=== PATIENT | female | born 1970 | race Caucasian/White ===

== ENCOUNTER → 2016-06-12 | Outpatient (CLI) | payer MEDICAID ==
[2016-06-12 13:11] VITALS: BP 154/79; PULSE 85; RESP 16; TEMP 98.1; BMI 30.4
[2016-06-12 15:09] LABS: CH 30.8; HCT 36.3 % (34.0-46.0); HDW 2.97; HGB 11.4 gm/dL (11.4-16.0); Hypochromasia Slight; MCH 30.4 pg (25.0-35.0); MCHC 31.4 g/dL (31.0-37.0); MCV 96.7 fL (80.0-100.0); Mean Platelet Volume 7.9; RBC 3.75 m/uL (3.80-5.40); RDW 13.8 % (11.5-15.5); WBC 8.5 k/uL (3.8-10.6)
[2016-06-12 15:25] LABS: ALT 26 U/L (9-52); AST 18 U/L (14-36); Alkaline Phosphatase 53 U/L (38-126); Anion Gap 7 mmol/L; Blood Urea Nitrogen 13 mg/dL (7-17); Calcium 8.9 mg/dL (8.4-10.2); Carbon Dioxide 26 mmol/L (22-30); Chloride 107 mmol/L (98-107); Cholesterol 228 mg/dL (<200); Glucose 79 mg/dL (74-99); HDL Cholesterol 72 mg/dL (40-60); Iron 54 ug/dL (37-170); Non-African American GFR(MDRD) >60 (>60 ml/min/1.73 sqM); Phosphorous 3.8 mg/dL (2.5-4.5); Potassium 4.4 mmol/L (3.5-5.1); Sodium 140 mmol/L (137-145); Total Bilirubin 0.5 mg/dL (0.2-1.3); Total Protein 5.8 g/dL (6.3-8.2); Triglycerides 77 mg/dL (<150)
[2016-06-12 15:37] LABS: % Iron Saturation 18.9 % (20-50); Prealbumin 23 mg/dL (18-36); Total Iron Binding Capacity 285 ug/dL (265-497)
[2016-06-12 15:40] LABS: Prothrombin Time 10.6 sec (9.0-12.0)
[2016-06-12 15:51] LABS: Partial Thromboplastin Time 21.8 sec (22.0-30.0)
[2016-06-12 16:32] LABS: Vitamin B12 582 pg/mL (239-931)
[2016-06-12 20:08] LABS: Hemoglobin A1C 4.3 % (4.2-6.1)
[2016-06-15 13:48] LABS: Selenium 116 mcg/L (63-160)
--- NOTE | 2016-07-21 19:18 | P.PN ---
Progress Note - Text DATE OF SERVICE: 06/12/2016 CHIEF COMPLAINT: Follow up sleeve gastrectomy. HISTORY OF PRESENT ILLNESS: Mary Jo Drummond is a pleasant 46-year-old female who is status post sleeve gastrectomy May 29, 2015. Her initial weight was 243 pounds. Today she comes in weighing 161 pounds. [place] body weight for a 5 foot, 1 frame is 131 pounds. She has lost 82 pounds in now one view. Her percent excess weight loss is 73%. Body mass index is reduced from 46 down to 30.4. Total BMI point reduction is 15.6. She lost another 3 pounds since her last visit in January 2016, now approximately 3 months ago. In fact she has undergone body contouring procedure including breast lift as well as abdominoplasty. She is very satisfied with her personal appearance. No reports of uncontrolled hypertension. Osteoarthritis is resolved. Her sleep apnea has resolved. Her joint pain is also resolved. She has a personal history of gastric lymphoma which was diagnosed during her evaluation of the bariatric program. She also reports being in remission for her gastric lymphoma. Now she presents for further evaluation and management. PAST MEDICAL HISTORY: 1. Hypertension. 2. Obstructive sleep apnea. 3. Osteoarthritis of the knees. 4. Chronic lower back pain. 5. Severe postoperative nausea and vomiting. 6. Gastric lymphoma in remission. PAST SURGICAL HISTORY: 1. Appendectomy. 2. Hysterectomy. 3. Tubal ligation. 4. Colonoscopy. 5. EGD. 6. Sleeve gastrectomy. 7. Abdominoplasty. 8. Breast lift. MEDICATIONS: 1. Tramadol. 2. Protonix. 3. [place]-3. 4. Nystatin powder. 5. Multivitamin. 6. Probiotic. 7. Estrace. 8. Vitamin D. 9. Vitamin B12. 10. Calcium citrate. 11. Biotin. 12. Nuvigil. 13. Xanax. ALLERGIES: LATEX. SOCIAL HISTORY: Lifelong nontobacco user. FAMILY HISTORY: Pertinent for morbid obesity. She also has family history of hyperlipidemia, hypertension and migraines. No family history of inflammatory bowel disease. Denies any gastrointestinal cancers. REVIEW OF SYSTEMS: CONSTITUTIONAL: [place] body weight of 131 pounds. Highest weight of 243 pounds. She has lost 82 pounds. Percent excess weight loss is 73%. Body mass index is reduced from 46 down to 30.4. Total BMI point reduction of 15.6. Additional 3 pounds weight loss in the last 3 months. GASTROINTESTINAL: She does report gastroesophageal reflux disease controlled with medications. No reports of dysphagia. MUSCULOSKELETAL: Osteoarthritis is now resolved. No reports of back pain. RESPIRATORY: Resolved obstructive sleep apnea. CARDIOVASCULAR: Resolved hypertension. HEENT: Denies any troubles with vision or hearing. ENDOCRINE: No reports of diabetes or thyroid disorders. NEURO: No reports stroke or seizure disorders. PSYCH: No reports of depression or suicidal ideation. HEMATOLOGIC: Denies any DVTs or easy bruising or bleeding. PHYSICAL EXAM: VITAL SIGNS: 98.1, 85, 16, 154/79, 5 feet 1 inch, 161 pounds. Body mass index of 30.4. ABDOMEN: Well approximated umbilical incision including incisions from abdominoplasty. SKIN: Well approximated incisions of the bilateral breasts. No palpable incisional hernias. HEENT: No sclera icterus. Extraocular movements grossly intact. Moist buccal mucosa. Head is atraumatic, normocephalic. Hears conversational speech. No nasal drainage. MUSCULOSKELETAL: No clubbing, cyanosis or edema. GENERAL: Well-developed female no acute distress. NECK: Supple without lymphadenopathy. CHEST: Nonlabored respirations with equal bilateral excursions. CARDIOVASCULAR: Regular rate and rhythm. NEURO: No focal or lateralizing signs. PSYCH: Appropriate affect. Alert and oriented to person, place and time. LABS: Hemoglobin normal 11.4. RBC was low at 3.75. PTT was low at 21.8. Percent iron saturation low of 18.9. Total protein low at 5.8. Albumin low at 3.4. Cholesterol elevated at 228. LDL elevated at 141. HDL elevated at 72. Rest of trace elements within normal limits. ASSESSMENT: 1. Morbid obesity due to excess calories, now resolved. Body mass index reduced from 46 down to 30.4. 2. Recent status post abdominoplasty. 3. Recent status post bilateral breast lift. 4. Obstructive sleep apnea, resolved. 5. Overweight. 6. History of low-grade gastric MALToma lymphoma. 7. Hypertensive disease without cardiomyopathy, resolved. 8. Osteoarthritis of lower back due to morbid obesity, resolved. 9. Osteoarthritis of the bilateral ankles due to morbid obesity, resolved. 10. Iron deficiency anemia. 11. Vitamin D deficiency. 12. Status post sleeve gastrectomy. 13. Gastroesophageal reflux disease. PLAN: 1. She had recent surgery which explains her low albumin and protein levels. 2. I have recommend continued protein intake with goal of over 65 grams daily, which will actually help her to recover well from her recent abdominoplasty, which is less than 2 weeks ago. 3. She does have history of gastric lymphoma for which she will need at minimum every 6 month check up and follow per her Oncologist. 4. Although she has done extremely well with her weight loss, she is personally looking to lose more weight. 5. Upper endoscopy needed for August or September 2016.
== END | disposition home or self-care (01) ==
LOC: BARWHC3 12:53
PROVIDERS: ATTEND Surgery Plastic and Reconstructive Surgery
DX: Z48.815 Encounter for surgical aftercare following surgery on the digestive system (principal); E66.01 Morbid (severe) obesity due to excess calories; Z98.84 Bariatric surgery status; E21.1 Secondary hyperparathyroidism, not elsewhere classified; E89.1 Postprocedural hypoinsulinemia; D50.8 Other iron deficiency anemias; E44.0 Moderate protein-calorie malnutrition; E55.9 Vitamin D deficiency, unspecified; K74.1 Hepatic sclerosis; N19 Unspecified kidney failure; K50.90 Crohn's disease, unspecified, without complications
CPT/HCPCS: 36415; 80053; 80061; 82306; 82525; 82607; 82728; 82746; 83036; 83540; 83550; 83735; 83970; 84100; 84134; 84255; 84425; 84443; 84590; 84630; 85027; 85610; 85730; 99211

== ENCOUNTER 2016-09-06 07:02 | Day surgery (SDC) | payer MEDICAID ==
[2016-09-05 11:36] VITALS: BMI 30.2
[~2016-09-06 07:02] MED LIST: LACTATED RINGERS 1,000 ML IV SCH
[2016-09-06 07:17] VITALS: TEMP 97.1
--- NOTE | 2016-09-06 07:21 | P.GSHP ---
History of Present Illness H&P Date: 09/06/16 CHIEF COMPLAINT: GERD HISTORY OF PRESENT ILLNESS: The patient is a 46-year-old female who presents reports gastroesophageal reflux disease. Upper endoscopy was offered for further evaluation and management. PAST MEDICAL HISTORY: Please see list. PAST SURGICAL HISTORY: Please see list. MEDICATIONS: Please see list. ALLERGIES: Please see list. SOCIAL HISTORY: No illicit drug use FAMILY HISTORY: No reports of Crohn disease or ulcerative colitis. REVIEW OF ORGAN SYSTEMS: CONSTITUTIONAL: No reports of fevers or chills. GI: Denies any blood in stools or constipation. PHYSICAL EXAM: VITAL SIGNS: Stable GENERAL: Well-developed and pleasant in no acute distress. HEENT: No scleral icterus. Extraocular movements grossly intact. Moist buccal mucosa. NECK: Supple without lymphadenopathy. CHEST: Unlabored respirations. Equal bilateral excursions. CARDIOVASCULAR: Regular rate and rhythm. Distal 2+ pulses. ABDOMEN: Soft, nondistended. MUSCULOSKELETAL: No clubbing, cyanosis, or edema. ASSESSMENT: 1. Gastroesophageal reflux disease PLAN: 1. Recommend proceeding with an upper endoscopy Past Medical History Past Medical History: Cancer, Chest Pain / Angina, GERD/Reflux, Hypertension, Osteoarthritis (OA), Pneumonia Additional Past Medical History / Comment(s): hx migraines, varicose veins, hiatal hernia, hx stomach cancer, hx high bp- no current rx, History of Any Multi-Drug Resistant Organisms: None Reported Past Surgical History: Appendectomy, Bariatric Surgery, Breast Surgery, Cholecystectomy, Hysterectomy, Tubal Ligation Additional Past Surgical History / Comment(s): 05/29/15 Laparoscopic Sleeve Gastrectomy, abdominoplasty, lasik eye surgery Past Anesthesia/Blood Transfusion Reactions: Family History of Problems w/ Anesthesia, Motion Sickness, Postoperative Nausea & Vomiting (PONV) Additional Past Anesthesia/Blood Transfusion Reaction / Comment(s): PROBLEMS VOIDING AFTER SURGERY 05/29/15. PONV ALSO IN PARENTS. Past Psychological History: No Psychological Hx Reported Additional Psychological History / Comment(s): . Smoking Status: Never smoker Past Alcohol Use History: Occasional Past Drug Use History: None Reported - Past Family History Sister(s) Family Medical History: Cancer Mother Family Medical History: Hyperlipidemia Additional Family Medical History / Comment(s): migraines, obesity,severe HTN Father Family Medical History: Hypertension Medications and Allergies Home Medications Medication Instructions Recorded Confirmed Type Armodafinil [Nuvigil] 250 mg PO DAILY PRN 10/26/14 09/06/16 History traMADol HCl [Ultram] 50 mg PO TID 10/26/14 09/06/16 History Estradiol [Estrace] 2 mg PO QAM 06/28/15 09/06/16 History Calcium Citrate 1,500 mg PO DAILY 06/30/15 09/06/16 History Cyanocobalamin (Vitamin B-12) 2,500 mcg PO Q48H 06/30/15 09/06/16 History [Vitamin B-12] Ergocalciferol [Vitamin D2] 50,000 unit PO MORALES 06/30/15 09/06/16 History Biotin 15,000 mcg PO DAILY 08/28/15 09/06/16 History Multivitamins, Thera [Multivitamin] 1 tab PO DAILY 08/28/15 09/06/16 History Bioclans 1 tab PO DAILY 02/12/16 09/06/16 History L.acidoph,Paracasei, B.lactis 1 cap PO DAILY 02/12/16 09/06/16 History [Probiotic] [place]-3 Fatty Acids [[place]-3] 1,000 mg PO DAILY 02/12/16 09/06/16 History ALPRAZolam [Xanax] 0.25 mg PO HS PRN 06/13/16 09/06/16 History Methocarbamol [Robaxin] 1,500 mg PO TID PRN 09/05/16 09/06/16 History Omeprazole 40 mg PO QAM 09/05/16 09/06/16 History Allergies Allergy/AdvReac Type Severity Reaction Status Date / Time Latex, Natural Rubber Allergy Rash/Hives Verified 09/05/16 11:24 Surgical - Exam Vital Signs Temp Pulse Resp BP Pulse Ox 97.1 F L 65 20 134/89 99 09/06/16 07:16 09/06/16 07:16 09/06/16 07:16 09/06/16 07:16 09/06/16 07:16
[2016-09-06] MEDS ORDERED: PROPOFOL 10 MG/ML 20 ML VIAL IV ONE (07:35)
[2016-09-06] MEDS ORDERED: LIDOCAINE 1% INJ 10MG/ML (20 ML MDV) ONE (07:35)
--- NOTE | 2016-09-06 07:48 | P.PCN ---
Date of Procedure: 09/06/16 Description of Procedure: PREOPERATIVE DIAGNOSIS: Status post sleeve gastrectomy. Gastroesophageal reflux disease. History of gastric lymphoma. POSTOPERATIVE DIAGNOSIS: Status post sleeve gastrectomy. Gastroesophageal reflux disease. Erosive esophagitis, chronic. History of gastric lymphoma. OPERATION: Esophagogastroduodenoscopy with biopsies along antrum and body of stomach. SURGEON: Susan Valle MD ANESTHESIA: MAC. INDICATIONS: The patient is a 41-year-old female who presents with a history of gastric lymphoma in remission and sleeve gastrectomy. She is now under surveillance for recurrence. Benefits and risks of the procedure were described. Informed consent was obtained. DESCRIPTION: The patient was brought into the endoscopy suite and laid in the left lateral decubitus position. An Olympus gastroscope was passed along the posterior oropharynx down to the distal esophagus where the squamocolumnar junction was at 37 centimeters from the incisors remarkable for chronic erosive esophagitis, LA grade B without ulceration. The sleeve was without stenosis or stricture along the angularis incisura. With a history of gastric lymphoma, cold biopsies were obtained along the antrum and body of stomach. The first through third portion of the duodenum was unremarkable. The scope was easily retroflexed at the antrum. The stomach was desufflated. The patient tolerated the procedure well. FINDINGS: No acute ulceration found along the sleeve. No corkscrewing or gastric stenosis of the sleeve gastrectomy. No active duodenitis. LA grade B erosive esophagitis. RECOMMENDATIONS: Upper endoscopy every 6 months per gastric lymphoma surveillance. Plan - Discharge Summary Discharge Medication List Armodafinil [Nuvigil] 250 mg PO DAILY PRN 10/26/14 [History] traMADol HCl [Ultram] 50 mg PO TID 10/26/14 [History] Estradiol [Estrace] 2 mg PO QAM 06/28/15 [History] Calcium Citrate 1,500 mg PO DAILY 06/30/15 [History] Cyanocobalamin (Vitamin B-12) [Vitamin B-12] 2,500 mcg PO Q48H 06/30/15 [History ] Ergocalciferol [Vitamin D2] 50,000 unit PO MORALES 06/30/15 [History] Biotin 15,000 mcg PO DAILY 08/28/15 [History] Multivitamins, Thera [Multivitamin] 1 tab PO DAILY 08/28/15 [History] Bioclans 1 tab PO DAILY 02/12/16 [History] L.acidoph,Paracasei, B.lactis [Probiotic] 1 cap PO DAILY 02/12/16 [History] [place]-3 Fatty Acids [[place]-3] 1,000 mg PO DAILY 02/12/16 [History] ALPRAZolam [Xanax] 0.25 mg PO HS PRN 06/13/16 [History] Methocarbamol [Robaxin] 1,500 mg PO TID PRN 09/05/16 [History] Omeprazole 40 mg PO QAM 09/05/16 [History]
[2016-09-06 07:55] VITALS: RESP 16
[2016-09-06 08:07] VITALS: BP 109/72; PULSE 64
== END 2016-09-06 08:30 | disposition home or self-care (01) ==
LOC: ORWHC2ENDO 07:02
PROVIDERS: ATTEND Surgery Plastic and Reconstructive Surgery
DX: K29.50 Unspecified chronic gastritis without bleeding (principal); K21.9 Gastro-esophageal reflux disease without esophagitis; K22.10 Ulcer of esophagus without bleeding; Z90.3 Acquired absence of stomach [part of]; Z85.72 Personal history of non-Hodgkin lymphomas; I10 Essential (primary) hypertension; M19.90 Unspecified osteoarthritis, unspecified site; Z79.891 Long term (current) use of opiate analgesic; Z79.899 Other long term (current) drug therapy; Z91.040 Latex allergy status
CPT/HCPCS: 88305; 88342; 43239; J2001; J2704